=== PATIENT | female | born 1955 | race Caucasian/White ===

== ENCOUNTER 2017-04-02 01:23 | Emergency (ER) | payer BC, OTHER ==
[~2017-04-02] VITALS: Ht 170.2 cm; Wt 72.6 kg
[2017-04-02 02:13] LABS: Basophils # (auto) 0 uL; Basophils % (auto) 0.4 % (0.0-2.0); Eosinophils # (auto) 0 uL; Eosinophils % (auto) 1.3 % (0.0-7.0); Hematocrit 42.6 % (36.0-46.0); Hemoglobin 14.3 g/dL (12.2-16.2); Lymphocytes # (auto) 0.9 uL; Mean Corpuscular Hemoglobin 30.4 pg (28.0-32.0); Mean Corpuscular Hgb Conc. 33.7 g/dL (32.0-36.0); Mean Corpuscular Volume 90.4 fL (80.0-100.0); Mean Platelet Volume 7.7 fL (7.4-10.4); Monocytes # (auto) 0.4 uL; Monocytes % (auto) 10.8 % (0.0-12.0); Neutrophils # (auto) 2.3 uL; Neutrophils % (auto) 62.5 % (37.0-80.0); Platelet Count (auto) 242 10^3/uL (140-450); Red Cell Distribution Width 13.1 % (11.6-16.0); White Blood Cell 3.7 10^3/uL (4.4-10.8)
[2017-04-02 02:37] LABS: Albumin 4.4 g/dL (3.4-5.0); Calcium 9.4 mg/dL (8.5-10.1); Potassium 3.4 mmol/L (3.5-5.1)
[2017-04-02 02:40] LABS: Bilirubin, Total 0.7 mg/dL (0.2-1.0); Total Protein 7.3 g/dL (6.4-8.2)
[2017-04-02] MEDS ORDERED: SODIUM CHLORIDE 0.9% 500 ML IVB ONE (06:37)
[2017-04-02] MEDS ORDERED: HYDROmorphone HCL 2 MG/ML VL IV ONE (06:45)
[2017-04-02] MEDS ORDERED: ONDANSETRON HCL 4 MG/2 ML VIAL IV ONE (06:45)
[2017-04-02] MEDS ORDERED: LORazepam 2MG/ML-1ML VIAL IV ONE (06:45)
[2017-04-02 07:19] LABS: Amylase 20 U/L (25-115)
[2017-04-02 07:35] LABS: Urine Blood Negative /uL (Negative); Urine Color Brown (Yellow); Urine Glucose Normal (Normal); Urine Mucus FEW (None Seen); Urine RBC 1 /hpf (0 - 4); Urine Urobilinogen Normal (Negative); Urine pH 5.5 (5.0-8.0)
[2017-04-02 07:39] LABS: Urine Ketone 3+ (Negative); Urine Nitrite POSITIVE (Negative)
[2017-04-02 07:40] LABS: Urine Bilirubin Negative (Negative)
[2017-04-02 07:54] VITALS: BP 147/76
== END 2017-04-02 08:59 | disposition home or self-care (01) ==
LOC: ER 01:23
DX: R10.30 Lower abdominal pain, unspecified (principal); K21.9 Gastro-esophageal reflux disease without esophagitis; E78.5 Hyperlipidemia, unspecified; I10 Essential (primary) hypertension; Z98.51 Tubal ligation status; Z90.49 Acquired absence of other specified parts of digestive tract; Z90.89 Acquired absence of other organs
CPT/HCPCS: 36415; 74176; 80053; 80307; 81001; 82150; 83690; 85025; 93005; 94761; 96361; 96374; 96375; 99285; J1170; J2060; J2405